=== PATIENT | male | born 1950 | race Caucasian/White ===

== ENCOUNTER 2022-11-17 13:54 | Emergency (ER) | payer MEDICARE, SELFPAY ==
[2022-11-17 14:01] VITALS: BP 136/94; PULSE 90; RESP 17; TEMP 37.1; O2SAT 98; BMI 26.3
--- NOTE | 2022-11-17 14:06 | DI.CT.S_ITS ---
PROCEDURE: CT CERVICAL SPINE WO CON INDICATIONS: fall on thinners TECHNIQUE: Noncontrast 3 mm thick sections acquired from the skull base to the T4 level. Sagittal and coronal reformats were then constructed. For radiation dose reduction, the following was used: automated exposure control, adjustment of mA and/or kV according to patient size. COMPARISON: [facility], CT, CT HEAD/BRAIN WO CON, 11/17/2022, 14:09. FINDINGS: Image quality: This examination is somewhat limited by quantum mottle artifact. Bones: No fractures or dislocations. Visualized superior ribs are intact. Focal degenerative change is seen involving the C1-C2 interface anteriorly. There is at least moderate disc space narrowing seen at C5-C6 and C6-C7. Areas of relatively prominent anterior osteophytes can be seen, with partial bridging. Posteriorly directed endplate osteophytes can be seen at several levels. Soft tissues: Prevertebral soft tissues are normal in thickness. No paravertebral hematomas. No apical pneumothoraces. Atherosclerotic calcification is noted. IMPRESSION: Negative for acute fracture. Multiple levels of cervical spine degenerative change can be seen. Now are Dictated by: Bernard Gomez M.D. on 11/17/2022 at 13:59 Approved by: Bernard Gomez M.D. on 11/17/2022 at 14:01
--- NOTE | 2022-11-17 14:06 | DI.CT.S_ITS ---
PROCEDURE: CT HEAD/BRAIN WO CON INDICATIONS: fall on thinners TECHNIQUE: Noncontrast 4.5 mm thick angled axial sections acquired from the foramen magnum to the vertex, with coronal and sagittal reformats. For radiation dose reduction, the following was used: automated exposure control, adjustment of mA and/or kV according to patient size. COMPARISON: [facility], CT, CT CERVICAL SPINE WO CON, 11/17/2022, 14:09. FINDINGS: Image quality: Excellent. CSF spaces: Basal cisterns are patent. No extra-axial fluid collections. The ventricles are symmetric in size and shape. Brain: No intracranial bleeds or masses. There is cerebral volume loss for age, with resultant ventricular and sulcal prominence. There are periventricular and deep white matter chronic small vessel ischemic changes. There is intracranial internal carotid artery atherosclerosis. Skull and face: Calvarium and visualized facial bones appear intact, without suspicious lesions. Sinuses: Visualized sinuses and mastoids are clear. IMPRESSION: No acute intracranial hemorrhage is seen. No acute intracranial process is seen. Dictated by: Bernard Gomez M.D. on 11/17/2022 at 13:58 Approved by: Bernard Gomez M.D. on 11/17/2022 at 13:59
--- NOTE | 2022-11-17 15:23 | PC.NURSE ---
Pt has been in lobby since triage, awaiting CT head/Neck results. Moving pt to fast track room at this time for provider consult and discharge.
--- NOTE | 2022-11-17 15:37 | ED.FALL ---
HPI - Fall <Berta Hernandez PA-C - Last Filed: 11/17/22 15:46> General Chief Complaint: Fall Stated Complaint: Larm GLF bleeding T-0 Time Seen by Provider: 11/17/22 15:23 Source: patient Mode of arrival: Ambulatory History of Present Illness HPI Narrative: Patient is a 72-year-old male who sustained a fall after tripping onto his left side. His medical history is significant for taking Eliquis. He sustained a bruise to his left temporal area and a skin tear to his left forearm. He immediately came to the emergency room. He denies any headache, loss of consciousness, nausea vomiting, dizziness. Related Data Allergies Allergy/AdvReac Type Severity Reaction Status Date / Time No Known Drug Allergies Allergy Verified 11/17/22 14:01 Review of Systems <Berta Hernandez PA-C - Last Filed: 11/17/22 15:46> Review of Systems ROS Unobtainable: All systems reviewed & are unremarkable except as noted in HPI and below Patient History <Berta Hernandez PA-C - Last Filed: 11/17/22 15:46> Social History Smoking Status: Never smoker Smoking Status: Never smoker alcohol intake frequency: a few times a month Substance Use Type: marijuana Exam <Berta Hernandez PA-C - Last Filed: 11/17/22 15:46> Narrative Exam Narrative: GENERAL: 72 year old patient appears stated age. Well-developed patient, in no distress. NEURO: AOx3. HEAD: Hematoma over left temporal area. Otherwise nontender. No midline C-spine tenderness. EYES: Pupils equal round and reactive. Extraocular motions intact. No scleral icterus. No injection or drainage. ENT: Nose without bleeding or purulent drainage. Airway patent. NECK: Trachea midline. Non tender RESPIRATORY: no distress. no chest wall tenderness or deformity. EXTREMITIES: No edema or joint tenderness. SKIN: 5x7cm skin tear over left forearm, no current bleeding Initial Vital Signs Initial Vital Signs: Vital Signs Temperature 98.7 F 11/17/22 14:01 Pulse Rate 90 11/17/22 14:01 Respiratory Rate 17 11/17/22 14:01 Blood Pressure 136/94 H 11/17/22 14:01 Pulse Oximetry 98 11/17/22 14:01 Oxygen Delivery Method Room Air 11/17/22 14:01 <Celso Soto MD - Last Filed: 12/02/22 08:39> Initial Vital Signs Initial Vital Signs: Vital Signs Temperature 98.7 F 11/17/22 14:01 Pulse Rate 90 11/17/22 14:01 Respiratory Rate 17 11/17/22 14:01 Blood Pressure 136/94 H 11/17/22 14:01 Pulse Oximetry 98 11/17/22 14:01 Oxygen Delivery Method Room Air 11/17/22 14:01 Course <Berta Hernandez PA-C - Last Filed: 11/17/22 15:46> Orders Ordered: ED Orders 11/17/22 14:06 CT cervical spine wo con Stat CT head/brain wo con Stat Vital Signs Vital signs: Vital Signs - 8 hr 11/17/22 14:01 Temperature 98.7 F Pulse Rate 90 Respiratory Rate 17 Blood Pressure 136/94 H Pulse Oximetry 98 Oxygen Delivery Method Room Air <Celso Soto MD - Last Filed: 12/02/22 08:39> Orders Ordered: ED Orders 11/17/22 14:06 CT cervical spine wo con Stat CT head/brain wo con Stat Vital Signs Vital signs: Vital Signs - 8 hr 11/17/22 14:01 Temperature 98.7 F Pulse Rate 90 Respiratory Rate 17 Blood Pressure 136/94 H Pulse Oximetry 98 Oxygen Delivery Method Room Air MDM - Fall <Berta Hernandez PA-C - Last Filed: 11/17/22 15:46> Imaging Data CT scan - head: Radiologist's Impression: PROCEDURE:? CT HEAD/BRAIN WO CON ? INDICATIONS:? fall on thinners ? TECHNIQUE:? Noncontrast 4.5 mm thick angled axial sections acquired from the foramen magnum to the vertex, with coronal and sagittal reformats.? For radiation dose reduction, the following was used:? automated exposure control, adjustment of mA and/or kV according to patient size.? ? COMPARISON:? [facility], CT, CT CERVICAL SPINE WO CON, 11/17/2022, 14:09. ? FINDINGS:? Image quality:? Excellent.? ? CSF spaces:? Basal cisterns are patent.? No extra-axial fluid collections.? The ventricles are symmetric in size and shape.? ? Brain:? No intracranial bleeds or masses.? There is cerebral volume loss for age, with resultant ventricular and sulcal prominence.? There are periventricular and deep white matter chronic small vessel ischemic changes.? There is intracranial internal carotid artery atherosclerosis.? ? Skull and face:? Calvarium and visualized facial bones appear intact, without suspicious lesions.? ? Sinuses:? Visualized sinuses and mastoids are clear.? ? IMPRESSION:? No acute intracranial hemorrhage is seen. ? No acute intracranial process is seen. ? Dictated by: Bernard Gomez M.D. on 11/17/2022 at 13:58 ? ? Approved by: Bernard Gomez M.D. on 11/17/2022 at 13:59 ? CT - cervical spine: Radiologist's Impression: PROCEDURE:? CT CERVICAL SPINE WO CON ? INDICATIONS:? fall on thinners ? TECHNIQUE:? Noncontrast 3 mm thick sections acquired from the skull base to the T4 level.? Sagittal and coronal reformats were then constructed.? For radiation dose reduction, the following was used:? automated exposure control, adjustment of mA and/or kV according to patient size.? ? COMPARISON:? [facility], CT, CT HEAD/BRAIN WO CON, 11/17/2022, 14:09. ? FINDINGS:? Image quality:? This examination is somewhat limited by quantum mottle artifact.? ? Bones:? No fractures or dislocations.? Visualized superior ribs are intact.? ? Focal degenerative change is seen involving the C1-C2 interface anteriorly.? There is at least moderate disc space narrowing seen at C5-C6 and C6-C7.? Areas of relatively prominent anterior osteophytes can be seen, with partial bridging.? Posteriorly directed endplate osteophytes can be seen at several levels. ? Soft tissues:? Prevertebral soft tissues are normal in thickness.? No paravertebral hematomas.? No apical pneumothoraces.? Atherosclerotic calcification is noted.? ? ? IMPRESSION:? Negative for acute fracture. ? Multiple levels of cervical spine degenerative change can be seen. Now are ? ? ? Dictated by: Bernard Gomez M.D. on 11/17/2022 at 13:59 ? ? Approved by: Bernard Gomez M.D. on 11/17/2022 at 14:01 ? MDM Narrative Medical decision making narrative: Multiple etiologies for patient's symptoms considered including, but not limited to: Intracranial hemorrhage, skull fracture, C-spine fracture. CT imaging of the head and neck without any acute abnormality. Patient reports feeling a little banged up but no focal site of pain on exam to indicate need for further imaging. Skin tear cleaned and dressed by RN. Patient will be accompanied by his brother on his drive back to [place]; discussed precautions for return to the emergency room if new symptoms develop. Patient's symptoms improved over duration of stay with above-stated therapies. Findings and discharge diagnosis discussed with patient/family followed by verbalization of understanding Return precautions discussed with patient/family whom verbalize understanding of diagnosis and plan Discharge Plan Departure Patient Disposition: Home Clinical Impression: Skin tear of left upper extremity, Fall Instructions: How to Prevent Falls, DI for Closed Head Injury Activity Restrictions/Additional Instructions: * your head and neck CT imaging was negative for any bleeding or fracture today. Because your on a blood thinner, your still at risk for having bleeding in your brain that could cause you problems. If you develop a significant headache, nausea, vomiting, weakness, loss of balance or other symptoms, please return to the emergency department for further imaging studies. You also have a significant skin tear on your left forearm. We have covered it with a dressing that can be left on for several days to protect the area. You will likely feel worse for the next several days before you feel better. Get lots of rest, use ice to the sore areas to decrease pain and inflammation. *What to do: *Please continue to take your regular medications as directed. [ ] New medication prescriptions sent to your pharmacy: [ ] [ ] New medication written as a paper prescription [x ] No new medications given *Please follow up with your primary care provider in 2-3 days, call for an appointment. Let them know you were seen in the Emergency Department and that we ask that you be seen in follow up. We will electronically transmit a record of today's note if your PCP is in our system *If you do not have a primary care provider please contact the [facility] Resource line at [phone]. They will ask some questions about your medical history and help get you set up with a doctor in the community. *Return to Emergency Department if you should have any new, worsening or concerning symptoms, such as [fever greater than 101 F, shaking chills, worsening pain, persistent vomiting or other concerning symptoms]. Referrals: Nguyễn Meneses, [Primary Care Provider] - Stand Alone Forms: Patient Portal/API ED Sign-out <Celso Soto MD - Last Filed: 12/02/22 08:39> Cosign ED Attending Cosimeldaature Attestation: I was immediately available in the department for consultation. ?This documentation has been reviewed and I agree with assessment and plan. Supervised by Celso Soto MD
[2022-11-17 15:55] VITALS: BP 108/81; PULSE 88; RESP 18; O2SAT 98
--- NOTE | 2022-11-17 16:13 | PC.NURSE ---
Pt given cheese, peanut butter, crackers and gingerale. BP 108/81. Will reassess at 1645 for d/c.
[2022-11-17 16:50] VITALS: BP 126/82; PULSE 88; RESP 18; O2SAT 99
--- NOTE | 2022-11-17 17:15 | PC.NURSE ---
Pt VS reassessed, BP 126/82 99% 88HR. Pt D/C at 1655.
== END 2022-11-17 17:18 | disposition home or self-care (01) ==
PROVIDERS: Emergency Provider Physician Assistant; PCP Internal Medicine
DX: S00.83XA Contusion of other part of head, initial encounter (principal); S51.812A Laceration without foreign body of left forearm, initial encounter; W01.0XXA Fall on same level from slipping, tripping and stumbling without subsequent striking against object, initial encounter
CPT/HCPCS: 70450; 72125; 99281; 99284